=== PATIENT | male | born 2000 | race Caucasian/White ===

== ENCOUNTER 2024-08-02 02:45 | Emergency (ER) | payer SELFPAY ==
[~2024-08-02] VITALS: Ht 167.6 cm; Wt 84.0 kg
[2024-08-02 02:49] VITALS: TEMP 36.7
[2024-08-02 03:32] LABS: BASOPHILS % 0.2 % (0.0-2.0); EOSINOPHILS % 0.2 % (0.0-5.0); HEMATOCRIT. 46.3 % (42.0-52.0); HEMOGLOBIN. 15.2 g/dL (14.0-18.0); MEAN CORPUSCULAR HEMOGLOBIN 28.6 pg (28.0-32.0); MEAN CORPUSCULAR HGB CONC 32.8 g/dL (31.0-37.0); MEAN CORPUSCULAR VOLUME 87.2 fL (80.0-94.0); MEAN PLATELET VOLUME 9.6 fl (7.4-10.4); MONOCYTES % 6.5 % (2.0-8.0); NEUTROPHILS % 84.1 % (40.0-76.0); PLATELET 200 x1000/uL (130-400); RED BLOOD CELL COUNT 5.32 mill/uL (4.7-6.1); RED CELL DISTRIBUTION WIDTH 13.4 % (11.6-14.6); WHITE BLOOD COUNT 9.8 x1000/uL (4.5-11.0)
[2024-08-02 03:37] LABS: CHLORIDE 109 mEq/L (98-107); POTASSIUM 3.7 mEq/L (3.5-5.1); SODIUM 143 mEq/L (136-145)
[2024-08-02 03:38] LABS: CALCIUM 9.3 mg/dL (8.7-10.4); CARBON DIOXIDE 24 mEq/L (21-32)
[2024-08-02 03:43] LABS: CREATININE 1.2 mg/dL (0.6-1.3); GLUCOSE 153 mg/dL (70-105); UREA NITROGEN BLOOD 13 mg/dL (9-23)
[2024-08-02] MEDS: KETOROLAC 15MG/ML VIAL IV ONE (03:50)
[2024-08-02] MEDS: METHYLPREDNISOLONE SOD SUCC 125MG/2ML (ACT-O-VIAL) IV STA (03:50)
[2024-08-02] MEDS: ALBUTEROL (0.083%) 2.5MG/3ML NEB HHN STA (04:13)
[2024-08-02 04:22] VITALS: PULSE 78; RESP 19; O2SAT 98
[2024-08-02 04:29] LABS: ALANINE AMINOTRANSFERASE 14 IU/L (10-49); ALBUMIN 4.4 g/dL (3.2-4.8); ASPARTATE AMINOTRANSFERASE 18 IU/L (<34); BILIRUBIN DIRECT 0.2 mg/dL (<=3.0); BILIRUBIN TOTAL 0.6 mg/dL (0.1-1.0); PROTEIN TOTAL 7.3 g/dL (6.0-8.3)
[2024-08-02] MEDS ORDERED: IBUP-2029 MT (05:50)
[2024-08-02] MEDS ORDERED: ALBU18HF2 IH (05:50)
[2024-08-02] MEDS ORDERED: P50 MT (05:50)
[2024-08-02] MEDS: IOHEXOL-300 100 ML BOTTLE ONE (06:12)
[2024-08-02 07:15] VITALS: BP 116/60; PULSE 79; RESP 18; O2SAT 98
== END 2024-08-02 07:15 | disposition home or self-care (01) ==
LOC: ER 02:45
DX: S30.1XXA Contusion of abdominal wall, initial encounter (principal); J45.909 Unspecified asthma, uncomplicated; Z86.718 Personal history of other venous thrombosis and embolism; Z87.891 Personal history of nicotine dependence; V89.2XXA Person injured in unspecified motor-vehicle accident, traffic, initial encounter; Y93.89 Activity, other specified; Y92.89 Other specified places as the place of occurrence of the external cause; Y99.8 Other external cause status
CPT/HCPCS: 80076; 80048; 85025; 36415; 71045; 71260; 74177; 94640; 96374; 96375; 99285; Q9967; J1885; J2919; Z7610 ×3